=== PATIENT | male | born 1975 | race Two or more races ===

== ENCOUNTER 2020-08-18 08:27 | Emergency (ER) | payer MEDICAID ==
[~2020-08-18] VITALS: Ht 160 cm; Wt 75.0 kg
[2020-08-18] MEDS ORDERED: PredniSONE 20 MG TABLET PO ONE (09:15)
[2020-08-18 11:24] VITALS: BP 116/55
== END 2020-08-18 11:26 | disposition home or self-care (01) ==
LOC: EMS 08:36
DX: S51.841A Puncture wound with foreign body of right forearm, initial encounter (principal); L25.3 Unspecified contact dermatitis due to other chemical products; W45.8XXA Other foreign body or object entering through skin, initial encounter; Y93.89 Activity, other specified; Y92.89 Other specified places as the place of occurrence of the external cause; Y99.8 Other external cause status
CPT/HCPCS: 73090; 99283; J7512